=== PATIENT | female | born 1970 | race Hispanic/Latino ===

== ENCOUNTER 2021-05-31 17:32 | Emergency (ER) | payer OTHER ==
[~2021-05-31] VITALS: Ht 167.6 cm; Wt 85.7 kg
[~2021-05-31 17:32] MED LIST: COZAAR25 MG PO; HYDROCHLOROTHIA25 MG PO; METFORMIN HCL500 MG PO; METOPROLOL TART50 MG PO
[2021-05-31] MEDS ORDERED: ACETAMINOPHEN 325 MG TAB PO STA (17:56)
[2021-05-31] MEDS ORDERED: KETOROLAC TROMETHAMINE 60 MG/2 ML VIAL IM ONE (18:00)
[2021-05-31] MEDS ORDERED: ACETAMINOPHEN 325 MG TAB ONE (18:17)
== END 2021-05-31 18:37 | disposition home or self-care (01) ==
LOC: FSED 17:38
DX: R09.89 Other specified symptoms and signs involving the circulatory and respiratory systems (principal); J10.1 Influenza due to other identified influenza virus with other respiratory manifestations
CPT/HCPCS: 83518; 87400; 99282